=== PATIENT | female | born 2000 | race Caucasian/White ===

== ENCOUNTER → 2023-12-26 10:16 | Outpatient (CLI) | payer BC, SELFPAY ==
[2023-12-26 11:43] LABS: Hemoglobin A1C% w Est Avg Glu 5.1 % (4.0-6.0)
== END ==
PROVIDERS: Referring Provider Obstetrics & Gynecology; Visit Provider Obstetrics & Gynecology
DX: Z87.42 Personal history of other diseases of the female genital tract (principal)
CPT/HCPCS: 36415; 83036